=== PATIENT | male | born 1930 | race Caucasian/White ===

== ENCOUNTER 2020-12-03 11:46 | Inpatient (IN) | payer MEDICARE, MEDICAID ==
[~2020-12-03] VITALS: Ht 180.3 cm; Wt 77.6 kg
[~2020-12-03 11:46] MED LIST: BICA50TA48 PO; CLOP75TA33 PO; LOT205 PO; METF-414 PO; PRAV40TA58 PO
[2020-12-03] MEDS ORDERED: IOHEXOL-350 100 ML BOTTLE ONE (12:51)
[2020-12-03] MEDS ORDERED: ONDANSETRON HCL 4MG/2ML INJ IV ONE (13:00)
[2020-12-03] MEDS ORDERED: MORPHINE SULFATE 4 MG/ML CPJ (NOT FOR IM USE) IV ONE (13:00)
[2020-12-03 13:11] LABS: BASOPHILS % 0.3 % (0.0-2.0); HEMATOCRIT. 39.5 % (42.0-52.0); HEMOGLOBIN. 12.4 g/dL (14.0-18.0); LYMPHOCYTES % 7.4 % (20.0-50.0); MEAN CORPUSCULAR HEMOGLOBIN 30.6 pg (28.0-32.0); MEAN CORPUSCULAR VOLUME 97.1 fL (80.0-94.0); MEAN PLATELET VOLUME 7.1 fl (7.4-10.4); MONOCYTES % 8.7 % (2.0-8.0); NEUTROPHILS % 83.6 % (40.0-76.0); PLATELET 211 x1000/uL (130-400); RED BLOOD CELL COUNT 4.07 mill/uL (4.7-6.1); RED CELL DISTRIBUTION WIDTH 16.7 % (11.6-14.6)
[2020-12-03] MEDS ORDERED: HYDROCORTISONE SOD SUCCINATE 100 MG/2 ML VIAL IV ONE (13:15)
[2020-12-03 13:16] LABS: INR 1.1; PROTHROMBIN TIME 12.2 sec (9.6-11.0)
[2020-12-03 13:21] LABS: CHLORIDE 109 mEq/L (98-107)
[2020-12-03 13:25] LABS: ETHANOL BLOOD < 10 mg/dL
[2020-12-03 13:29] LABS: CREATINE KINASE 72 IU/L (39-308); LDL CHOLESTEROL 47 mg/dL (5-100)
[2020-12-03] MEDS ORDERED: LORAZEPAM 2MG/ML CPJ IV ONE (16:00)
[2020-12-03 19:05] LABS: CLARITY URINE CLEAR (CLEAR); COLOR URINE YELLOW (YELLOW); KETONES URINE TRACE (NEGATIVE); LEUKOCYTE ESTERASE URINE NEGATIVE (NEGATIVE); NITRITE URINE POSITIVE (NEGATIVE); OCCULT BLOOD URINE NEGATIVE (NEGATIVE); PROTEIN URINE TRACE (NEGATIVE); SPECIFIC GRAVITY URINE 1.064 (1.005-1.030)
[2020-12-03 19:19] LABS: *AMPHETAMINES SCREEN URINE NEGATIVE (NEGATIVE); *BARBITURATES SCREEN URINE NEGATIVE (NEGATIVE); *BENZODIAZEPINES SCREEN URINE NEGATIVE (NEGATIVE); *COCAINE SCREEN URINE NEGATIVE (NEGATIVE)
[2020-12-03 19:20] LABS: CANNABINOID URINE SCREEN NEGATIVE (NEGATIVE); METHADONE URINE SCREEN NEGATIVE (NEGATIVE); OPIATES URINE SCREEN PRESUMTIVE POSITIVE (NEGATIVE); PHENCYCLIDINE URINE SCREEN NEGATIVE (NEGATIVE)
[2020-12-04] MEDS ORDERED: IPRATROPIUM/ALBUTEROL 0.5-3(2.5)MG/3ML NEB HHN PRN (02:00)
[2020-12-04] MEDS ORDERED: DOCUSATE SODIUM 100MG CAPSULE PO PRN (02:00)
[2020-12-04] MEDS ORDERED: ACETAMINOPHEN 325MG TABLET PO PRN (02:00)
[2020-12-04] MEDS ORDERED: ONDANSETRON HCL 4MG/2ML INJ IV PRN (02:00)
[2020-12-04 03:44] VITALS: BP_SYST 115; BP_DIAS 58; BP_DIAS 64
[2020-12-04 04:30] VITALS: BP 115/64
[2020-12-04] MEDS ORDERED: DEXTROSE 50% WATER 50ML SYRINGE IV PRN ×2 (06:00)
[2020-12-04] MEDS: BLOOD SUGAR DIAGNOSTIC STRIP TEST SCH ×4 (06:25→20:46)
[2020-12-04] MEDS ORDERED: BLOOD SUGAR DIAGNOSTIC STRIP TEST SCH (07:20)
[2020-12-04] MEDS: INSULIN LISPRO 100 UNITS/ML SUBCUT SCH ×4 (07:39→21:00)
[2020-12-04] MEDS ORDERED: INSULIN LISPRO 100 UNITS/ML SUBCUT SCH (07:50)
[2020-12-04 08:00] VITALS: BP 122/64
[2020-12-04] MEDS: CLOPIDOGREL 75MG TABLET PO SCH (09:02)
[2020-12-04] MEDS: BICALUTAMIDE 50 MG TABLET PO SCH (09:02)
[2020-12-04] MEDS: BENAZEPRIL 10MG TABLET PO SCH (09:03)
[2020-12-04] MEDS: ENOXAPARIN 30MG/0.3ML SYR SUBCUT SCH ×2 (09:11→21:27)
[2020-12-04 11:46] VITALS: BP 108/50
[2020-12-04] MEDS: HYDROMORPHONE HCL/PF 2MG/ML CPJ IV PRN (11:57)
[2020-12-04] MEDS ORDERED: CEFTRIAXONE 1 G PREMIX 50 ML IV SCH (15:00)
[2020-12-04 16:30] VITALS: BP 110/50
[2020-12-04] MEDS ORDERED: CEFTRIAXONE 1,000 MG in DEXTROSE 5% WATER 50 ML IV SCH ×2 (16:30→20:00)
[2020-12-04] MEDS ORDERED: LIDOCAINE HCL 4% CREAM 76GM TUBE TP PRN (18:00)
[2020-12-04] MEDS: HYDROCORTISONE 10MG TABLET PO SCH (18:23)
[2020-12-04 20:00] VITALS: BP 112/50
[2020-12-04] MEDS ORDERED: ATORVASTATIN CALCIUM 40MG TABLET PO SCH (21:00)
[2020-12-05] VITALS: BP 124/65
[2020-12-05 03:57] VITALS: BP 123/59
[2020-12-05] MEDS: HYDROMORPHONE HCL/PF 2MG/ML CPJ IV PRN (04:26)
[2020-12-05] MEDS: BLOOD SUGAR DIAGNOSTIC STRIP TEST SCH ×3 (06:36→18:18)
[2020-12-05] MEDS: INSULIN LISPRO 100 UNITS/ML SUBCUT SCH ×3 (07:50→17:50)
[2020-12-05 08:00] VITALS: BP 113/52
[2020-12-05] MEDS ORDERED: PREDNISONE 5MG TABLET PO SCH (09:00)
[2020-12-05] MEDS: CLOPIDOGREL 75MG TABLET PO SCH (09:15)
[2020-12-05] MEDS: BICALUTAMIDE 50 MG TABLET PO SCH (09:15)
[2020-12-05] MEDS: BENAZEPRIL 10MG TABLET PO SCH (09:15)
[2020-12-05] MEDS: HYDROCORTISONE 10MG TABLET PO SCH (09:16)
[2020-12-05] MEDS: ENOXAPARIN 30MG/0.3ML SYR SUBCUT SCH (09:29)
[2020-12-05] MEDS ORDERED: LORAZEPAM 2MG/ML CPJ IV NR (11:15)
[2020-12-05 12:00] VITALS: BP 119/61
[2020-12-05 13:14] LABS: HEMATOCRIT. 38.6 % (42.0-52.0); HEMOGLOBIN. 12.4 g/dL (14.0-18.0); MEAN CORPUSCULAR HEMOGLOBIN 30.3 pg (28.0-32.0); MEAN CORPUSCULAR VOLUME 94.9 fL (80.0-94.0); PLATELET 236 x1000/uL (130-400); RED BLOOD CELL COUNT 4.07 mill/uL (4.7-6.1); RED CELL DISTRIBUTION WIDTH 16.7 % (11.6-14.6)
[2020-12-05 14:14] LABS: PLATELET ESTIMATE NORMAL
[2020-12-05] MEDS ORDERED: IOHEXOL-300 100 ML BOTTLE ONE (14:53)
[2020-12-05 16:00] VITALS: BP 143/72
[2020-12-05] MEDS ORDERED: LEVO500T89 MT (16:08)
[2020-12-05 18:22] VITALS: BP 142/72
[2020-12-06] MEDS ORDERED: ENOXAPARIN 40MG/0.4ML SYR SUBCUT SCH (09:00)
== END 2020-12-05 19:05 | disposition home health service (06) | DRG 70 ==
LOC: ER 11:46 → MICUSO 14:58 → EDBEDREQSVC 15:00 → EDBEDREQ 15:00 → 6WST 12-04 02:36
PROVIDERS: ADMIT Internal Medicine Pulmonary Disease; ATTEND Internal Medicine Pulmonary Disease
DX: G93.41 Metabolic encephalopathy (principal); E43 Unspecified severe protein-calorie malnutrition; E27.40 Unspecified adrenocortical insufficiency; I69.354 Hemiplegia and hemiparesis following cerebral infarction affecting left non-dominant side; N39.0 Urinary tract infection, site not specified; D64.9 Anemia, unspecified; E11.9 Type 2 diabetes mellitus without complications; E78.00 Pure hypercholesterolemia, unspecified; E78.5 Hyperlipidemia, unspecified; E87.8 Other disorders of electrolyte and fluid balance, not elsewhere classified; C61 Malignant neoplasm of prostate; Z66 Do not resuscitate; I10 Essential (primary) hypertension; Z82.49 Family history of ischemic heart disease and other diseases of the circulatory system; Z92.21 Personal history of antineoplastic chemotherapy; Z68.23 Body mass index [BMI] 23.0-23.9, adult
CPT/HCPCS: 36415; 70496; 70498; 70551; 71045; 71260; 80048; 80053; 80305; 80320; 81003; 82533; 82550; 82962; 83036; 83721; 83880; 84484; 85025; 92610; 93005; 97163; 99291; J0696; J1170; J1650; J1720; J2060; J2270; J2405; J7060; Q9967; G0480

== ENCOUNTER 2021-01-21 09:53 | Inpatient (IN) | payer MEDICARE, MEDICAID ==
[~2021-01-21] VITALS: Ht 167.6 cm; Wt 77.1 kg
[~2021-01-21 09:53] MED LIST changes: +LEVO500T89 MT
[2021-01-21] MEDS ORDERED: ONDANSETRON HCL 4MG/2ML INJ IV STA (10:43)
[2021-01-21] MEDS ORDERED: FAMOTIDINE 20MG/2ML VIAL IV ONE (10:45)
[2021-01-21] MEDS ORDERED: SODIUM CHLORIDE 0.9% 1,000 ML IV ONE (10:45)
[2021-01-21 10:51] LABS: BASOPHILS % 0.6 % (0.0-2.0); EOSINOPHILS % 0.3 % (0.0-5.0); HEMATOCRIT. 37.8 % (42.0-52.0); HEMOGLOBIN. 11.9 g/dL (14.0-18.0); LYMPHOCYTES % 7.1 % (20.0-50.0); MEAN PLATELET VOLUME 7.7 fl (7.4-10.4); MONOCYTES % 8.6 % (2.0-8.0); NEUTROPHILS % 83.4 % (40.0-76.0); PLATELET 257 x1000/uL (130-400); RED BLOOD CELL COUNT 4.11 mill/uL (4.7-6.1); RED CELL DISTRIBUTION WIDTH 17.6 % (11.6-14.6)
[2021-01-21 10:56] LABS: CHLORIDE 99 mEq/L (98-107)
[2021-01-21 11:01] LABS: INR 1.2; PROTHROMBIN TIME 12.6 sec (9.6-11.0)
[2021-01-21] MEDS ORDERED: CEFEPIME 1,000 MG in DEXTROSE 5% WATER 50 ML IV SCH (13:30)
[2021-01-21] MEDS ORDERED: VANCOMYCIN 1 G PREMIX 200 ML IV SCH (13:30)
[2021-01-21] MEDS ORDERED: HYDROCODONE/ACETAMINOPHEN 5/325MG TABLET PO PRN (14:30)
[2021-01-21 23:00] VITALS: BP 128/47
[2021-01-22] VITALS: BP 128/47
[2021-01-22 04:00] VITALS: BP 127/46
[2021-01-22] MEDS ORDERED: GUAIFENESIN 200MG/10ML SUGAR FREE UDC PO PRN (06:30)
[2021-01-22] MEDS ORDERED: ENOXAPARIN 40MG/0.4ML SYR SUBCUT SCH (06:30)
[2021-01-22] MEDS ORDERED: DOCUSATE SODIUM 100MG CAPSULE PO PRN (06:30)
[2021-01-22] MEDS ORDERED: ACETAMINOPHEN 325MG TABLET PO PRN (06:30)
[2021-01-22] MEDS ORDERED: ONDANSETRON HCL 4MG/2ML INJ IV PRN (06:30)
[2021-01-22] MEDS ORDERED: IPRATROPIUM/ALBUTEROL 0.5-3(2.5)MG/3ML NEB HHN PRN ×2 (07:30→11:30)
[2021-01-22 08:00] VITALS: BP 133/55
[2021-01-22] MEDS ORDERED: CEFEPIME 1,000 MG in DEXTROSE 5% WATER 50 ML IV SCH (08:00)
[2021-01-22] MEDS: PIPERACILLIN/TAZOBACTAM 3.375 G in DEXTROSE 5% WATER 50 ML IV SCH ×3 (08:31→21:39)
[2021-01-22] MEDS: SODIUM CHLORIDE 0.45% 1,000 ML IV SCH ×2 (08:32→21:40)
[2021-01-22] MEDS: ENOXAPARIN 30MG/0.3ML SYR SUBCUT SCH (08:32)
[2021-01-22 12:00] VITALS: BP 106/49
[2021-01-22] MEDS: METHYLPREDNISOLONE SOD SUCC 40 MG/ML VIAL IV SCH ×2 (13:44→21:40)
[2021-01-22] MEDS: IPRATROPIUM/ALBUTEROL 0.5-3(2.5)MG/3ML NEB HHN SCH ×2 (13:56→20:12)
[2021-01-22 16:00] VITALS: BP 122/51
[2021-01-22 20:00] VITALS: BP 117/46
[2021-01-22] MEDS ORDERED: DEXTROSE 50% WATER 50ML SYRINGE IV PRN (20:00)
[2021-01-22] MEDS: INSULIN LISPRO 100 UNITS/ML SUBCUT SCH (21:00)
[2021-01-22] MEDS ORDERED: HYDROCODONE/ACETAMINOPHEN 5/325MG TABLET PO PRN (21:15)
[2021-01-22] MEDS ORDERED: NALOXONE HCL 0.4MG/ML VIAL IV PRN (21:15)
[2021-01-22] MEDS: BLOOD SUGAR DIAGNOSTIC STRIP TEST SCH (21:39)
[2021-01-23] VITALS: BP 117/54
[2021-01-23] MEDS: IPRATROPIUM/ALBUTEROL 0.5-3(2.5)MG/3ML NEB HHN SCH ×3 (02:57→11:42)
[2021-01-23 04:00] VITALS: BP 109/42
[2021-01-23] MEDS: METHYLPREDNISOLONE SOD SUCC 40 MG/ML VIAL IV SCH ×2 (04:53→11:35)
[2021-01-23] MEDS: PIPERACILLIN/TAZOBACTAM 3.375 G in DEXTROSE 5% WATER 50 ML IV SCH ×2 (05:00→13:05)
[2021-01-23] MEDS: BLOOD SUGAR DIAGNOSTIC STRIP TEST SCH ×2 (06:53→11:36)
[2021-01-23 07:00] LABS: HEMATOCRIT. 40.3 % (42.0-52.0); HEMOGLOBIN. 12.8 g/dL (14.0-18.0); MEAN CORPUSCULAR HEMOGLOBIN 29.2 pg (28.0-32.0); MEAN CORPUSCULAR VOLUME 92.1 fL (80.0-94.0); MEAN PLATELET VOLUME 8.1 fl (7.4-10.4); PLATELET 361 x1000/uL (130-400); RED BLOOD CELL COUNT 4.37 mill/uL (4.7-6.1); RED CELL DISTRIBUTION WIDTH 17.8 % (11.6-14.6)
[2021-01-23] MEDS: INSULIN LISPRO 100 UNITS/ML SUBCUT SCH ×2 (07:27→11:36)
[2021-01-23 07:59] LABS: CHLORIDE 99 mEq/L (98-107)
[2021-01-23 08:00] VITALS: BP 99/51
[2021-01-23] MEDS: ENOXAPARIN 30MG/0.3ML SYR SUBCUT SCH (09:39)
[2021-01-23] MEDS: SODIUM CHLORIDE 0.45% 1,000 ML IV SCH (09:40)
[2021-01-23 10:44] LABS: PLATELET ESTIMATE NORMAL
[2021-01-23 12:00] VITALS: BP 93/51
[2021-01-23] MEDS ORDERED: SODIUM POLYSTYRENE SULFONATE 15 G/60 ML BOT PO NR (13:00)
[2021-01-23 15:28] VITALS: BP 99/51
[2021-01-23 16:00] VITALS: BP_SYST 122; BP_SYST 91; BP_DIAS 47; BP_DIAS 72
== END 2021-01-23 17:46 | disposition hospice, home (50) | DRG 871 ==
LOC: ER 10:13 → EDBEDREQSVC 13:40 → EDBEDREQTM 15:37 → EDBEDREQ 15:37 → EDBEDREQTM 15:49 → ENRESERV 21:19 → 6EST 22:21
PROVIDERS: ADMIT Hospitalist; ATTEND Hospitalist
DX: A41.9 Sepsis, unspecified organism (principal); E43 Unspecified severe protein-calorie malnutrition; J96.01 Acute respiratory failure with hypoxia; J69.0 Pneumonitis due to inhalation of food and vomit; N17.9 Acute kidney failure, unspecified; J44.1 Chronic obstructive pulmonary disease with (acute) exacerbation; J44.0 Chronic obstructive pulmonary disease with (acute) lower respiratory infection; C78.7 Secondary malignant neoplasm of liver and intrahepatic bile duct; C79.31 Secondary malignant neoplasm of brain; C79.89 Secondary malignant neoplasm of other specified sites; Z66 Do not resuscitate; Z51.5 Encounter for palliative care; I10 Essential (primary) hypertension; C43.9 Malignant melanoma of skin, unspecified; R62.7 Adult failure to thrive; E87.5 Hyperkalemia; E78.00 Pure hypercholesterolemia, unspecified; E78.5 Hyperlipidemia, unspecified; D64.9 Anemia, unspecified; K80.20 Calculus of gallbladder without cholecystitis without obstruction; E27.9 Disorder of adrenal gland, unspecified; E11.9 Type 2 diabetes mellitus without complications; Z20.822 Contact with and (suspected) exposure to COVID-19; Z92.21 Personal history of antineoplastic chemotherapy; Z92.3 Personal history of irradiation; Z79.899 Other long term (current) drug therapy; Z79.84 Long term (current) use of oral hypoglycemic drugs; I25.2 Old myocardial infarction; Z86.73 Personal history of transient ischemic attack (TIA), and cerebral infarction without residual deficits; Z82.49 Family history of ischemic heart disease and other diseases of the circulatory system; Z85.46 Personal history of malignant neoplasm of prostate; Z90.79 Acquired absence of other genital organ(s); Z87.891 Personal history of nicotine dependence; Z68.27 Body mass index [BMI] 27.0-27.9, adult
CPT/HCPCS: 36415; 71045; 74176; 80053; 82962; 83036; 84484; 85025; 87426; 93005; 94640; 99285; J0692; J1650; J2405; J2543; J2920; J3370; J3490; J7030; J7040; J7060